=== PATIENT | female | born 1990 | race African-American/Black ===

== ENCOUNTER 2018-04-18 13:28 | Emergency (ER) | payer MEDICAID ==
[~2018-04-18] VITALS: Ht 170.2 cm; Wt 88.0 kg
[~2018-04-18 13:28] MED LIST: ALBUTEROL
[2018-04-18] MEDS ORDERED: SODIUM CHLORIDE 0.9% 500 ML IV ONE (14:15)
[2018-04-18] MEDS ORDERED: ACETAMINOPHEN 500MG TABLET PO ONE (14:15)
[2018-04-18] MEDS ORDERED: METOCLOPRAMIDE HCL 10MG/2ML VIAL IV ONE (14:15)
[2018-04-18 14:48] LABS: BASOPHILS % 1.1 % (0.0-2.0); EOSINOPHILS % 0.4 % (0.0-5.0); HEMOGLOBIN. 11.1 g/dL (12.0-16.0); LYMPHOCYTES % 27.6 % (20.0-50.0); MEAN CORPUSCULAR HEMOGLOBIN 28.5 pg (28.0-32.0); MEAN CORPUSCULAR VOLUME 84.5 fL (81.0-99.0); MEAN PLATELET VOLUME 6.7 fl (7.4-10.4); MONOCYTES % 5.8 % (2.0-8.0); NEUTROPHILS % 65.1 % (40.0-76.0); PLATELET 307 x1000/uL (130-400); RED BLOOD CELL COUNT 3.91 mill/uL (4.2-5.4); RED CELL DISTRIBUTION WIDTH 14.5 % (11.6-14.6)
[2018-04-18 14:52] LABS: CHLORIDE 104 mEq/L (98-107)
[2018-04-18 15:03] LABS: HCG SCREEN NEGATIVE
[2018-04-18 15:35] VITALS: BP 142/58
== END 2018-04-18 15:36 | disposition home or self-care (01) ==
LOC: ER 13:28
DX: J06.9 Acute upper respiratory infection, unspecified (principal); L02.419 Cutaneous abscess of limb, unspecified; F17.200 Nicotine dependence, unspecified, uncomplicated; J45.909 Unspecified asthma, uncomplicated; Z88.3 Allergy status to other anti-infective agents; Z88.6 Allergy status to analgesic agent; Z88.8 Allergy status to other drugs, medicaments and biological substances
CPT/HCPCS: 36415; 71045; 80053; 84703; 85025; 96361; 96374; 99285; J2765; J7040; Z7610

== ENCOUNTER 2018-10-26 08:39 | Emergency (ER) | payer MEDICAID ==
[~2018-10-26] VITALS: Ht 167.6 cm; Wt 100.0 kg
[2018-10-26] MEDS ORDERED: ACETAMINOPHEN 325MG TABLET PO STA (10:49)
[2018-10-26] MEDS ORDERED: ALBUTEROL (0.083%) 2.5MG/3ML NEB HHN STA (10:49)
[2018-10-26] MEDS ORDERED: FLUTICASONE PROPIONATE 50MCG/SPRAY BOTTLE BOTHNSTRLS SCH (11:00)
[2018-10-26 12:29] VITALS: BP 145/76
== END 2018-10-26 12:30 | disposition home or self-care (01) ==
LOC: ER 08:39
DX: J01.90 Acute sinusitis, unspecified (principal); J45.909 Unspecified asthma, uncomplicated; F12.10 Cannabis abuse, uncomplicated; F17.200 Nicotine dependence, unspecified, uncomplicated; Z88.3 Allergy status to other anti-infective agents; Z88.6 Allergy status to analgesic agent
CPT/HCPCS: 94640; 99283; J7611

== ENCOUNTER 2019-04-30 09:23 | Emergency (ER) | payer MEDICAID ==
[~2019-04-30] VITALS: Ht 167.6 cm; Wt 104.0 kg
[2019-04-30] MEDS ORDERED: ONDANSETRON 4MG ODT PO ONE ×2 (10:45→13:00)
[2019-04-30] MEDS ORDERED: HYDROCODONE/ACETAMINOPHEN 5/325MG TABLET PO ONE (10:45)
[2019-04-30] MEDS ORDERED: TETANUS, DIPHTHERIA, PERTUSSIS VAC/PF 0.5ML (>7YR OLD) IM ONE (10:45)
[2019-04-30] MEDS ORDERED: BACITRACIN ZINC OINT UDPKT TOP ONE (10:45)
[2019-04-30] MEDS ORDERED: MORPHINE SULFATE 10 MG/ML CPJ IM ONE (12:45)
[2019-04-30 12:55] VITALS: BP 149/105
== END 2019-04-30 13:26 | disposition home or self-care (01) ==
LOC: ER 09:33
DX: S50.02XA Contusion of left elbow, initial encounter (principal); S40.012A Contusion of left shoulder, initial encounter; S50.12XA Contusion of left forearm, initial encounter; J45.909 Unspecified asthma, uncomplicated; F12.10 Cannabis abuse, uncomplicated; Z88.1 Allergy status to other antibiotic agents; Z88.6 Allergy status to analgesic agent; Z88.8 Allergy status to other drugs, medicaments and biological substances; W18.39XA Other fall on same level, initial encounter; Y93.89 Activity, other specified; Y92.89 Other specified places as the place of occurrence of the external cause; Y99.8 Other external cause status
CPT/HCPCS: 29105; 71101; 72125; 73030; 73060; 73080; 81025; 90471; 90715; 96372; 99284; J2270; Q0162; A4565

== ENCOUNTER 2019-05-18 13:40 | Emergency (ER) | payer MEDICAID ==
[~2019-05-18] VITALS: Ht 167.6 cm; Wt 92.0 kg
[2019-05-18] MEDS ORDERED: ACETAMINOPHEN WITH CODEINE 300/30MG TABLET PO ONE (14:30)
[2019-05-18 14:42] VITALS: BP 136/76
== END 2019-05-18 15:16 | disposition home or self-care (01) ==
LOC: ER 13:48
DX: K03.81 Cracked tooth (principal); J45.909 Unspecified asthma, uncomplicated; F17.200 Nicotine dependence, unspecified, uncomplicated; Z88.1 Allergy status to other antibiotic agents; Z88.6 Allergy status to analgesic agent; Z79.51 Long term (current) use of inhaled steroids
CPT/HCPCS: 99283

== ENCOUNTER 2020-12-06 23:55 | Emergency (ER) | payer MEDICAID ==
[~2020-12-06] VITALS: Ht 170.2 cm; Wt 104.0 kg
[2020-12-06 23:57] VITALS: BP 184/97
[2020-12-07] MEDS ORDERED: HYDROCODONE/ACETAMINOPHEN 5/325MG TABLET PO ONE (00:30)
[2020-12-07] MEDS ORDERED: ACET-2708 MT (01:21)
== END 2020-12-07 01:30 | disposition home or self-care (01) ==
LOC: ER 23:55
DX: K04.7 Periapical abscess without sinus (principal); J45.909 Unspecified asthma, uncomplicated; Z88.3 Allergy status to other anti-infective agents; Z88.6 Allergy status to analgesic agent; Z88.8 Allergy status to other drugs, medicaments and biological substances
CPT/HCPCS: 99282